=== PATIENT | female | born 1985 | race Caucasian/White ===

== ENCOUNTER 2023-11-01 09:11 | Emergency (ER) | payer MEDICAID ==
[~2023-11-01] VITALS: Ht 180.3 cm; Wt 77.0 kg
[2023-11-01 09:14] VITALS: TEMP 97.9
[2023-11-01] MEDS ORDERED: dexamethasone sod phosphate 10mg/ml inj PO STA (09:16)
[2023-11-01] MEDS ORDERED: diphenhydrAMINE 50 mg/ml inj IM ONE (09:20)
[2023-11-01] MEDS ORDERED: famotidine 20mg tablet PO ONE (09:20)
[2023-11-01 10:45] VITALS: BP 152/107; PULSE 95; RESP 18; O2SAT 100
== END 2023-11-01 10:48 | disposition home or self-care (01) ==
LOC: ER 09:11
DX: K14.8 Other diseases of tongue (principal); Z88.0 Allergy status to penicillin
CPT/HCPCS: 96372; 99283; J1100; J1200

== ENCOUNTER 2023-11-01 16:53 | Emergency (ER) | payer MEDICAID ==
[~2023-11-01] VITALS: Ht 180.3 cm; Wt 77.5 kg
[2023-11-01] MEDS ORDERED: diphenhydrAMINE 25mg capsule PO ONE (17:45)
[2023-11-01 18:03] VITALS: BP 165/92; PULSE 98; RESP 18; TEMP 98; O2SAT 98
== END 2023-11-01 18:06 | disposition home or self-care (01) ==
LOC: ER 16:53
DX: R22.0 Localized swelling, mass and lump, head (principal); Z88.0 Allergy status to penicillin; Z00.8 Encounter for other general examination
CPT/HCPCS: 99283; Q0163

== ENCOUNTER 2024-09-25 13:14 | Emergency (ER) | payer MEDICAID ==
[~2024-09-25] VITALS: Ht 180.3 cm; Wt 74.8 kg
[2024-09-25 13:29] VITALS: BP 139/85; PULSE 107; RESP 18; TEMP 97; O2SAT 98
== END 2024-09-25 16:50 | disposition left against medical advice (07) ==
LOC: ER 13:14
DX: N23 Unspecified renal colic (principal); M54.9 Dorsalgia, unspecified; Z53.21 Procedure and treatment not carried out due to patient leaving prior to being seen by health care provider